=== PATIENT | male | born 1950 | race Caucasian/White ===

== ENCOUNTER 2019-12-24 09:45 | Observation (INO) | payer MEDICARE, OTHER ==
[~2019-12-24] VITALS: Ht 180.3 cm; Wt 133.2 kg
[2019-12-24] MEDS: SODIUM CHLORIDE 0.9% 1,000 ML IV SCH ×2 (10:04→16:57)
[2019-12-24 10:16] VITALS: BP 170/89
[2019-12-24] MEDS ORDERED: CEFAZOLIN PMX 1GM/50ML 50 ML IVPB ONE (10:30)
[2019-12-24 10:31] LABS: BASOPHILS # (AUTO) 0.04 x10^3/uL (0-0.1); BASOPHILS % (AUTO) 1 % (0-1); EOSINOPHILS # (AUTO) 0.18 x10^3/uL (0-0.4); EOSINOPHILS % (AUTO) 3 % (1-7); LYMPHOCYTES # (AUTO) 2.13 x10^3/uL (1-3.4); LYMPHOCYTES % (AUTO) 29 % (22-44); MD NO; MEAN CORPUSCULAR HEMOGLOBIN 30.2 pg (27.5-34.5); MEAN CORPUSCULAR HGB CONC 32.5 g/dL (33.2-36.2); MEAN CORPUSCULAR VOLUME 92.9 fL (81-97); MONOCYTES # (AUTO) 0.63 x10^3/uL (0.2-0.8); MONOCYTES % (AUTO) 8 % (2-9); NEUTROPHILS # (AUTO) 4.46 x10^3/uL (1.8-6.8); NEUTROPHILS % (AUTO) 60 % (42-75); PLATELET COUNT 180 x10^3/uL (130-400); RED BLOOD COUNT 5.41 x10^6/uL (4.38-5.82); RED CELL DISTRIBUTION WIDTH 13.5 % (9.4-14.8)
[2019-12-24] MEDS ORDERED: METO25TA35 PO (10:33)
[2019-12-24] MEDS ORDERED: ZOLP-413 PO (10:33)
[2019-12-24] MEDS ORDERED: APIX5TAB PO (10:33)
[2019-12-24] MEDS ORDERED: CHOL10003 PO (10:33)
[2019-12-24 10:38] LABS: ANION GAP 6 mmol/L (5-15); CALCIUM 9.4 mg/dL (8.5-10.1); CHLORIDE 113 mmol/L (98-107)
[2019-12-24 10:40] LABS: CREATININE 1.09 mg/dL (0.7-1.3)
[2019-12-24] MEDS ORDERED: FENTANYL PF 100 MCG/2ML ONE (11:48)
[2019-12-24] MEDS ORDERED: LIDOCAINE 2%, 20ML ONE (11:48)
[2019-12-24] MEDS ORDERED: CEFAZOLIN 1,000 MG ONE (11:48)
[2019-12-24] MEDS ORDERED: MIDAZOLAM 1 MG/ML, 5ML ONE (11:48)
[2019-12-24] MEDS ORDERED: ACETAMINOPHEN 325 MG TABLET PO PRN (13:00)
[2019-12-24] MEDS ORDERED: Hold all anticoagulants for 24 hours MC PRN (13:00)
[2019-12-24] MEDS ORDERED: METOPROLOL TARTRATE 25 MG TAB ONE (14:38)
[2019-12-24] MEDS: METOPROLOL TARTRATE 25 MG TAB PO SCH (14:41)
[2019-12-24] MEDS ORDERED: hydrALAzine 20 MG/ML, 1ML IV PRN (16:00)
[2019-12-24] MEDS ORDERED: AMLODIPINE 5 MG TABLET PO ONE (16:00)
[2019-12-24] MEDS ORDERED: AMLODIPINE 5 MG TABLET ONE (16:03)
[2019-12-24] MEDS ORDERED: hydrALAzine 20 MG/ML, 1ML ONE (16:05)
[2019-12-24 18:41] VITALS: BP 156/98
[2019-12-24] MEDS: HYDROcodone/APAP 5/325 TABLET PO PRN (20:09)
[2019-12-24] MEDS: ZOLPIDEM 5MG TABLET PO SCH (21:00)
[2019-12-24] MEDS: SODIUM CHLORIDE FLUSH 10ML SYR IVF SCH (21:06)
[2019-12-25 00:52] VITALS: BP 169/92
[2019-12-25] MEDS: ZOLPIDEM 5MG TABLET PO SCH (00:53)
[2019-12-25] MEDS: SODIUM CHLORIDE 0.9% 1,000 ML IV SCH ×2 (00:55→08:39)
[2019-12-25] MEDS: HYDROcodone/APAP 5/325 TABLET PO PRN ×2 (01:01→10:50)
[2019-12-25 08:40] VITALS: BP 151/100
[2019-12-25] MEDS: METOPROLOL TARTRATE 25 MG TAB PO SCH (08:51)
[2019-12-25] MEDS: SODIUM CHLORIDE FLUSH 10ML SYR IVF SCH (08:51)
[2019-12-25] MEDS ORDERED: CHOLECALCIFEROL 1,000 UNIT TABLET PO SCH (09:00)
[2019-12-25] MEDS ORDERED: ACET325T26 PO (09:09)
[2019-12-25] MEDS ORDERED: HYDR-3237 PO (09:09)
== END 2019-12-25 12:43 | disposition home or self-care (01) ==
LOC: CACL 09:45 → ORIP 12:47 → 5SO 16:52 → DCLOUNGE 12-25 12:29
PROVIDERS: ADMIT Internal Medicine Clinical Cardiac Electrophysiology; ATTEND Internal Medicine Clinical Cardiac Electrophysiology
DX: I48.19 Other persistent atrial fibrillation (principal); I49.5 Sick sinus syndrome; I42.9 Cardiomyopathy, unspecified; I45.5 Other specified heart block; I10 Essential (primary) hypertension; G62.9 Polyneuropathy, unspecified; G47.33 Obstructive sleep apnea (adult) (pediatric); M48.061 Spinal stenosis, lumbar region without neurogenic claudication; K80.00 Calculus of gallbladder with acute cholecystitis without obstruction; F17.200 Nicotine dependence, unspecified, uncomplicated; Z79.899 Other long term (current) drug therapy
CPT/HCPCS: 33207; 36005; 36415; 71045; 71046; 80048; 85025; 93005; 96361; 96374; 99156; 99157; C1779; C1785; C1892; G0378; J0360; J0690; J2250; J3010; J3490; J7030; Q9967